=== PATIENT | female | born 1960 | race Caucasian/White ===

== ENCOUNTER → 2017-02-03 | Outpatient (CLI) | payer OTHER ==
--- NOTE | 2017-02-03 15:33 | MAM ---
EXAM DESCRIPTION: 3D Screening BILATERAL CLINICAL HISTORY: 56 yearsFemaleSCREENING no complaints. No family history of breast cancer. Postmenopausal. No HRT. COMPARISON: 2-D digital screening bilateral study 05/15/2011.. No prior reports available. TECHNIQUE: Bilateral CC and MLO projection full-field images, 3-D tomosynthesis digital mammographic technique. Also bilateral synthesized CC/ MLO full-field images. CAD not utilized. FINDINGS: The breast parenchymal density pattern is: Heterogeneously dense breast tissue, which may obscure small masses. No skin thickening or nipple retraction bilateral intramammary lymph nodes. No focal, stellate mass or density, focal asymmetry , and no suspicious microcalcifications bilaterally. Stable mammograms compared to prior study, taking into account differences in mammographic technique IMPRESSION: BI-RADS CATEGORY: 2 - BENIGN. FOLLOW-UP: Routine mammography screening, digital-bilateral, one year interval from February 2017. Written communication explaining the results and follow-up will be mailed to the patient and referring care provider. According to the [employer], yearly mammograms are recommended starting at age 40 and continuing as long as a woman is in good health. Any breast change noted on a breast self-exam should be reported promptly to the patient's healthcare provider. Breast MRI is recommended for women with an approximately 20-25% or greater lifetime risk of breast cancer, including women with a strong family history of breast or ovarian cancer and women who have been treated for Hodgkin's disease. A negative mammographic report should not delay tissue diagnosis in patients with significant clinical history or physical findings. Extremely dense breast tissue limits the sensitivity of digital mammography. Electronically signed by: Donovan Lozano MD 02/03/2017 3:32 PM CDT
== END | disposition home or self-care (01) ==
LOC: MAMMO 07:50
PROVIDERS: ATTEND Obstetrics & Gynecology
DX: Z12.31 Encounter for screening mammogram for malignant neoplasm of breast (principal)
CPT/HCPCS: 77063; G0202

== ENCOUNTER → 2018-02-24 | Outpatient (CLI) | payer OTHER ==
--- NOTE | 2018-02-25 15:38 | MAM ---
EXAM DESCRIPTION: 3D Screening BILATERAL : Digital Mammography. CLINICAL HISTORY: 57 years Female SCREENING . No complaints. No personal or family history of breast cancer. Postmenopausal approximately 10 years. Childbirth. No HRT. Lifetime risk of developing breast cancer (Tyrer-Cuzick model)(%): 6.9. COMPARISON: Bilateral screening digital breast tomosynthesis 02/03/2017. TECHNIQUE: Bilateral CC and MLO projection full-field images, Digital tomosynthesis mammographic technique. Bilateral digital 2-D full-field MLO images. CAD not utilized. FINDINGS: The breast parenchymal density pattern is: Heterogeneously dense breast tissue, which may obscure small masses. No skin thickening or nipple retraction. Scattered bilateral solitary microcalcifications. No new focal, stellate mass or density, focal asymmetry , and no suspicious microcalcifications bilaterally. Stable mammograms compared to prior study. IMPRESSION: Benign exam. BIRAD CATEGORY: 2 BENIGN FINDINGS. RECOMMENDATIONS: FOLLOW UP: Routine digital bilateral screening, one year interval from February 2018 Written communication explaining the IMPRESSION and follow-up, will be mailed to the patient and referring health care provider. According to the [employer], yearly mammograms are recommended starting at age 40 and continuing as long as a woman is in good health. Any breast change noted on a breast self-exam should be reported promptly to the patient's healthcare provider. Breast MRI is recommended for women with an approximately 20-25% or greater lifetime risk of breast cancer, including women with a strong family history of breast or ovarian cancer and women who have been treated for Hodgkin's disease. A negative mammographic report should not delay tissue diagnosis in patients with significant clinical history or physical findings. Extremely dense breast tissue limits the sensitivity of digital mammography. Electronically signed by: Donovan Lozano MD 02/25/2018 3:36 PM CDT
== END ==
LOC: MAMMO 11:58
PROVIDERS: ATTEND Obstetrics & Gynecology
DX: Z12.31 Encounter for screening mammogram for malignant neoplasm of breast (principal)

== ENCOUNTER → 2018-04-09 | Outpatient (CLI) | payer OTHER ==
--- NOTE | 2018-04-10 08:15 | MRI ---
EXAM: Lumbar Spine w/o Contrast CLINICAL HISTORY: M51.16 COMPARISON STUDY: None TECHNICAL: MRI images were acquired through the lumbar spine in multiple planes and sequences without IV contrast administration. FINDINGS: The lumbar vertebral bodies are in appropriate anatomic alignment. There is no evidence of fracture. There are no bone marrow signal changes of edema or inflammation. The conus medullaris has a normal configuration. The L2-3 disc is narrowed. There is mild disc desiccation. There is minimal posterior annular bulge of less than 3 mm. Disc protrusions into the exiting foramina are less than 3 mm and there is no evidence of neurologic impingement. The remaining disc levels are maintained. There is no focal disc herniation, canal stenosis or neurologic impingement. Mild to moderate degenerative changes of the bilateral facets are present at all levels of the lumbar spine. Mild ligamentum flavum hypertrophy is present at all levels. IMPRESSION: 1. 2.8 mm diffuse annular bulge and mild disc height loss at L2-3 but no focal disc herniation, spinal canal stenosis or neurologic impingement at any level of the lumbar spine. 2. Mild to moderate degenerative changes of the facets at all levels and mild ligamentum flavum hypertrophy at all levels. Electronically signed by: Juanito Russo MD 04/10/2018 8:14 AM MAINTENANCE TECHNICIAN 2ND SHIFT
== END ==
LOC: MRI 08:23
PROVIDERS: ATTEND Psychiatry & Neurology Neurology
DX: M51.16 Intervertebral disc disorders with radiculopathy, lumbar region (principal)

== ENCOUNTER → 2020-05-11 | Outpatient (CLI) | payer OTHER | LOC: GMALS 11:27 | PROVIDERS: ATTEND Nurse Practitioner Acute Care | DX: Z01.419 Encounter for gynecological examination (general) (routine) without abnormal findings (principal) ==

== ENCOUNTER → 2020-05-16 | Outpatient (CLI) | payer OTHER ==
--- NOTE | 2020-05-17 10:59 | MAM ---
EXAM DESCRIPTION: 3D Screening BILATERAL : Digital Mammography. CLINICAL HISTORY: 59 years Female SCREENING . No complaints. No family history of breast cancer. Menarche age 12. Childbirth age 21. Menopause age 47. No HRT.. Lifetime risk of developing breast cancer (Tyrer-Cuzick model)(%): 6.6. COMPARISON: Bilateral screening digital breast tomosynthesis February 2018 and February 2017. TECHNIQUE: Bilateral CC and MLO projection full-field images, digital tomosynthesis mammographic technique. Bilateral digital 2-D full-field MLO images. CAD available for 2-D images. FINDINGS: The breast parenchymal density pattern is: Heterogeneously dense breast tissue, which may obscure small masses. No skin thickening or nipple retraction No new focal, stellate mass or density, focal asymmetry , and no suspicious microcalcifications bilaterally. Stable mammograms compared to prior study. IMPRESSION: No suspicious or significant imaging findings. BI-RADS CATEGORY: 1 - NEGATIVE RECOMMENDATIONS: FOLLOW UP: Routine digital bilateral screening, one year interval from May 2020. Written communication explaining the findings and follow-up, will be mailed to the patient and referring health care provider. According to the [employer], yearly mammograms are recommended starting at age 40 and continuing as long as a woman is in good health. Any breast change noted on a breast self-exam should be reported promptly to the patient's healthcare provider. Breast MRI is recommended for women with an approximately 20-25% or greater lifetime risk of breast cancer, including women with a strong family history of breast or ovarian cancer and women who have been treated for Hodgkin's disease. A negative mammographic report should not delay tissue diagnosis in patients with significant clinical history or physical findings. Extremely dense breast tissue limits the sensitivity of digital mammography. Electronically signed by: Donovan Lozano MD 05/17/2020 10:58 AM [facility]
== END ==
LOC: MAMMO 10:06
PROVIDERS: ATTEND Nurse Practitioner Women's Health
DX: Z12.31 Encounter for screening mammogram for malignant neoplasm of breast (principal)